=== PATIENT | male | born 1975 | race African-American/Black ===

== ENCOUNTER 2023-07-29 20:18 | Emergency (ER) | payer SELFPAY ==
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
--- NOTE | ~2023-07-29 | XR_ITS ---
Right Shoulder Technique: AP and scapular Y views were obtained. Clinical History: Post reduction COMPARISON: 07/29/2023 Findings: No fracture or dislocation is seen. Osseous alignment is anatomic. The glenohumeral and acr omioclavicular joint spaces are preserved. Soft tissues are unremarkable. Impression: Previously noted humeral head dislocation has been successfully reduced. No fracture or dislocation s een currently. Reviewed, dictated and finalized at location M. ICAL ABSTRACTOR Impression: Previously noted humeral head dislocation has been successfully reduced. No fra cture or dislocation seen currently.
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
[2023-07-29 21:07] VITALS: BP 141/98; PULSE 76; RESP 18; TEMP 36.6; O2SAT 100
[2023-07-29] MEDS: HYDROmorphone HCL INJ (*CRX) 1 MG/ML SYR IV PUSH (22:29)
[2023-07-29] MEDS: TETANUS,DIPHTHERIA,AC PERTUSSIS ADULT (0.5 ML) BOOSTRIX IM (22:29)
[2023-07-30] MEDS: SODIUM CHLORIDE 0.9% IV 1,000 ML 999 ML IV CONT (00:19)
[2023-07-30 00:20] VITALS: PULSE 69; RESP 22; TEMP 36.6; O2SAT 100
[2023-07-30] MEDS: PROPOFOL IV EMULSION 200 MG/20 ML VIAL 90 MG IV PUSH (00:20)
[2023-07-30 00:22] VITALS: BP 162/98; PULSE 77; RESP 16; TEMP 36.6; O2SAT 98
[2023-07-30] MEDS: PROPOFOL IV EMULSION 200 MG/20 ML VIAL 50 MG IV PUSH (00:25)
[2023-07-30 00:27] VITALS: BP 154/89; PULSE 77; RESP 22; TEMP 36.7; O2SAT 97
[2023-07-30 00:49] VITALS: BP 143/87; PULSE 69; RESP 18; O2SAT 100
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
[2023-07-30 03:59] VITALS: BP 121/82; PULSE 68; RESP 14; O2SAT 98
== END 2023-07-30 04:02 | disposition home or self-care (01) ==
PROVIDERS: Emergency Provider Emergency Medicine
DX: S43.014A Anterior dislocation of right humerus, initial encounter (principal); S61.412A Laceration without foreign body of left hand, initial encounter; S09.90XA Unspecified injury of head, initial encounter; Z23 Encounter for immunization; Y04.0XXA Assault by unarmed brawl or fight, initial encounter
CPT/HCPCS: 12002; 23650; 70450; 70486; 72125; 73030; 90471; 90715; 96374; 99285; J1170; J2704; J7030